=== PATIENT | female | born 1980 | race Caucasian/White ===

== ENCOUNTER 2024-01-17 08:27 | Outpatient (CLI) | payer OTHER, SELFPAY | END 2024-01-17 08:28 | disposition home or self-care (01) | LOC: ANHBWCAUD 08:29 | PROVIDERS: PCP Otolaryngology; Visit Provider Otolaryngology | DX: H90.5 Unspecified sensorineural hearing loss (principal); H93.13 Tinnitus, bilateral; H92.03 Otalgia, bilateral; R42 Dizziness and giddiness | CPT/HCPCS: 92557; 92567 ==